=== PATIENT | female | born 1985 | race Caucasian/White ===

== ENCOUNTER → 2019-11-14 09:52 | Outpatient (CLI) | payer OTHER, MEDICAID, SELFPAY ==
[2019-11-14 10:37] LABS: Hematocrit 38.4 % (36-46); Hemoglobin 13.2 g/dL (12.0-16.0); Mean Corpuscular HGB Conc 34.4 % (30-36); Mean Corpuscular Hemoglobin 30.6 PG (26-34); Mean Corpuscular Volume 89.1 fL (80-100); Platelet Count 321 X10^3/uL (150-400); Red Blood Cell Count 4.31 X10^6/uL (4.0-5.2); Red Cell Distribution Width 13.5 % (11.6-14.8)
[2019-11-14 11:40] LABS: Alanine Aminotransferase 19 IU/L (<35); Albumin 4.9 g/dL (3.5-5.0); Albumin Globulin Ratio 1.8 (1.0-2.8); Alkaline Phosphatase 66 U/L (38-126); Aspartate Aminotransferase 23 IU/L (14-36); Bilirubin Total 0.7 mg/dL (0.2-1.3); Blood Urea Nitrogen 8 mg/dL (7-17); Carbon Dioxide 26 mmol/L (22-32); Chloride 102 mmol/L (98-107); Cholesterol 153 mg/dL (140-199); Estimated Glomerular Filt Rate > 60.0 mL/min (>60); Globulin 2.8 g/dL (1.7-4.1); Glucose 81 mg/dL (70-100); HDL Cholesterol 63 mg/dL (40-60); HEMOLYSIS < 15 (0-50); LDL Cholesterol Calculated 79 mg/dL (<100); Potassium 4.5 mmol/L (3.4-5.1); Sodium 139 mmol/L (137-145); Total Protein 7.7 g/dL (6.3-8.2); Triglycerides 56 mg/dL (35-150)
== END ==
PROVIDERS: PCP Nurse Practitioner Family; Visit Provider Nurse Practitioner Family
DX: Z00.00 Encounter for general adult medical examination without abnormal findings (principal); Z13.6 Encounter for screening for cardiovascular disorders
CPT/HCPCS: 36415; 80053; 80061; 85027

== ENCOUNTER → 2019-11-18 10:51 | Outpatient (CLI) | payer OTHER, MEDICAID, SELFPAY ==
--- NOTE | 2019-11-18 10:56 | DI.US.S_ITS ---
PROCEDURE: US OB <= 14 WEEKS FETUS INDICATIONS: DATING AND VIABILITY OUTSIDE/PRIOR DATING DATA: Last menstrual period (LMP): Unknown. LMP-based estimated date of delivery (SUMMER): Unknown. First dating scan (date and location): 11/18/19. Estimated date of delivery (SUMMER) from first dating scan: 06/21/20. TECHNIQUE: Real-time scanning was performed of the fetus and maternal pelvic organs, with image documentation. COMPARISON: None. FINDINGS: Embryo: There is single intrauterine gestation with fetus a yolk sac seen. heart rate is 175 beats per minute. Kevin-rump length measures 2.4 cm. Estimated gestational age is 9 weeks one day. Cervix is closed, cervical canal measures 3.2 cm in length. Measurement variability in dating: +/- 4 weeks by LMP, +/- 7 days by mean sac diameter (use before 6 weeks gestation if crown-rump length not able to be measured), +/- 5 days by crown-rump length (up to 8 weeks 6 days gestation), +/- 7 days by crown-rump length (up to 13 weeks 6 days gestation). Maternal organs: Right ovary is within normal limits. Left ovarian corpus luteal cyst is seen and measures 1.9 x 1.5 x 1.6 cm in size. Limited images through the kidneys demonstrate no hydronephrosis. IMPRESSION: 1. Single intrauterine with fetus and yolk sac seen. Estimated gestational age is 9 weeks one day. heart rate is 175 beats per minute. Dictated by: Reese Enamorado M.D. on 11/18/2019 at 14:24 Approved by: Reese Enamorado M.D. on 11/18/2019 at 14:26
== END ==
PROVIDERS: PCP Nurse Practitioner Family; Visit Provider Family Medicine
DX: Z34.81 Encounter for supervision of other normal pregnancy, first trimester (principal); Z3A.09 9 weeks gestation of pregnancy
CPT/HCPCS: 76801

== ENCOUNTER → 2019-12-05 14:37 | Outpatient (CLI) | payer OTHER, MEDICAID, SELFPAY ==
[2019-12-05 16:18] LABS: Add Manual Diff / Slide Review NO; Basophils Absolute Auto 100 /uL (0-100); Basophils Percent Auto 0.6 % (0-2); Eosinophils Absolute Auto 100 /uL (0-450); Eosinophils Percent Auto 1.1 % (2-4); Hematocrit 39.9 % (36-46); Hemoglobin 13.7 g/dL (12.0-16.0); Lymphocytes Absolute Auto 1600 /uL (1100-4500); Lymphocytes Percent Auto 14.5 % (25-40); Mean Corpuscular HGB Conc 34.2 % (30-36); Mean Corpuscular Hemoglobin 30.7 PG (26-34); Mean Corpuscular Volume 89.8 fL (80-100); Monocytes Absolute Auto 600 /uL (0-900); Monocytes Percent Auto 5.8 % (3-14); Neutrophils Absolute Auto 8800 /uL (1500-7000); Platelet Count 349 X10^3/uL (150-400); Red Blood Cell Count 4.44 X10^6/uL (4.0-5.2); Red Cell Distribution Width 13.4 % (11.6-14.8); White Blood Cell Count 11.2 X10^3/uL (4.5-11.0)
[2019-12-05 16:24] LABS: Appearance Urine UA CLEAR; Bilirubin Urine UA NEGATIVE (NEGATIVE); Color Urine UA YELLOW; Glucose Urine UA NEGATIVE (Negative); Ketones Urine UA NEGATIVE (NEGATIVE); Leukocyte Esterase Urine UA NEGATIVE (NEGATIVE); Nitrite Urine UA NEGATIVE (Negative); Occult Blood Urine UA TRACE-LYSED (Negative); Protein Urine UA NEGATIVE (Negative); Specific Gravity Urine UA 1.025 (1.000-1.035); Urobilinogen Urine UA 0.2 E.U./dL (0.2)
[2019-12-05 17:33] LABS: Hepatitis B Surface Antigen NEGATIVE s/c (NEGATIVE); Rubella Antibody IgG 23.3 IU/mL (>15)
[2019-12-05 17:56] LABS: HIV 1 & 2 Ab/Ag 4th Gen Combo NEGATIVE (NEGATIVE); Hep C Virus Ab w/Reflex Quant NEGATIVE s/c (NEGATIVE)
[2019-12-07 20:08] LABS: RPR Screen Nonreactive (Nonreactive)
== END ==
PROVIDERS: Family Provider Nurse Practitioner Family; PCP Nurse Practitioner Family; Visit Provider Family Medicine
DX: Z34.81 Encounter for supervision of other normal pregnancy, first trimester (principal)
CPT/HCPCS: 36415; 80055; 81003; 86787; 86803; 86850; 86900; 86901; 87086; 87389

== ENCOUNTER → 2020-01-02 10:01 | Outpatient (CLI) | payer OTHER, MEDICAID, SELFPAY ==
[2020-01-02 10:17] LABS: Bacteria Urine None Seen; RBC Urine None Seen (0-5/HPF); WBC Urine None Seen (0-5/HPF)
[2020-01-02 11:06] LABS: Appearance Urine UA CLEAR; Bilirubin Urine UA NEGATIVE (NEGATIVE); Color Urine UA YELLOW; Glucose Urine UA NEGATIVE (Negative); Ketones Urine UA NEGATIVE (NEGATIVE); Leukocyte Esterase Urine UA NEGATIVE (NEGATIVE); Nitrite Urine UA NEGATIVE (Negative); Occult Blood Urine UA NEGATIVE (Negative); Protein Urine UA NEGATIVE (Negative); Urobilinogen Urine UA 0.2 E.U./dL (0.2)
[2020-01-02 11:39] LABS: Amorphous Sediment Urine 3+; Culture Indicated Urine Cult Not Indicated; Mucus Urine 1+ (Negative); Squamous Epithelial Cell Urine 0-1 /HPF (0-5/HPF)
== END ==
PROVIDERS: Family Medicine; Family Provider Nurse Practitioner Family; PCP Nurse Practitioner Family; Referring Provider Nurse Practitioner Family; Visit Provider Nurse Practitioner Family
DX: N89.8 Other specified noninflammatory disorders of vagina (principal)
CPT/HCPCS: 81001

== ENCOUNTER → 2020-01-17 08:50 | Outpatient (CLI) | payer OTHER, MEDICAID, SELFPAY ==
--- NOTE | 2020-01-17 08:51 | DI.US.S_ITS ---
PROCEDURE: US OB >= 14 WEEKS FETUS INDICATIONS: ANATOMY SCAN OUTSIDE/PRIOR DATING DATA: Last menstrual period (LMP): Unknown. LMP-based estimated date of delivery (SUMMER): Unknown. First dating scan (date and location): 11/18/19. Estimated date of delivery (SUMMER) from first dating scan: 06/21/20.. TECHNIQUE: Real-time scanning was performed of the fetus, with image documentation and biometric measurements. Endovaginal scanning: No COMPARISON: None. FINDINGS: General: A single living intrauterine gestation is present. Presentation: Cephalic. Placenta: Placental position is posterior, without previa. Amniotic fluid index: 9.7 cm, normal range is 5-24 cm. heart rate: 160 beats per minute. Maternal cervical canal: 3.5 cm long. Normal lower limit is 2.5 cm. biometrics: Biparietal diameter: 17 weeks 4 days Head circumference: 17 weeks 3 days Abdominal circumference: 17 weeks 4 days Femur length: 17 weeks 4 days Estimated gestational age from initial scan: 17 weeks 5 days Composite gestational age from present scan: 17 weeks 4 days Estimated weight and percentile: 202 g; 38 percentile Measurement variability for biometric dating: +/- 7 days from 14 weeks to 15 weeks 6 days gestation, +/- 10 days from 16 weeks to 21 weeks 6 days gestation, +/- 2 weeks from 22 weeks to 27 weeks 6 days gestation, +/- 3 weeks for 28 weeks gestation or later. weight reference: 4500 g or EFW >90/95% is considered macrosomia or large for gestational age. EFW <10% is small for gestational age. EFW 5% or less is considered intra-uterine growth restriction. Anatomic survey: Neuro: Ventricles are non-dilated at less than 10 mm. Cisterna magna is normal at 3-11 mm. Cerebellum is normal in size and morphology. Nuchal skin fold: Normal at less than 6 mm between 14-21 weeks gestational age. Face: Nose and lips, facial profile are normal. Spine: No evidence for spina bifida. Heart: 4-chambered heart is present, with normal ventricular outflow tracts. Diaphragm: Diaphragm is intact. Stomach: Left-sided stomach is present. Kidneys: No hydronephrosis. Normal is less than 5 mm in 2nd trimester, less than 7 mm in 3rd trimester. Cord: 3-vessel cord has orthotopic insertion. Bladder: Normal in size. Extremities: All 4 extremities identified. IMPRESSION: 1. Normal interval growth. 2. Normal anatomy. Dictated by: Nathaniel HONG Interpreted: Cal Locke MD on 01/17/2020 at 10:17 Approved by: Cal Locke M.D. on 01/17/2020 at 15:18
== END ==
PROVIDERS: Family Provider Nurse Practitioner Family; PCP Nurse Practitioner Family; Referring Provider Family Medicine; Visit Provider Family Medicine
DX: Z34.82 Encounter for supervision of other normal pregnancy, second trimester (principal); Z3A.17 17 weeks gestation of pregnancy
CPT/HCPCS: 76811

== ENCOUNTER → 2020-03-26 09:12 | Outpatient (CLI) | payer OTHER, MEDICAID, SELFPAY ==
[2020-03-26 10:06] LABS: Add Manual Diff / Slide Review NO; Basophils Absolute Auto 0 /uL (0-100); Basophils Percent Auto 0.5 % (0-2); Eosinophils Absolute Auto 100 /uL (0-450); Eosinophils Percent Auto 1.4 % (2-4); Hematocrit 35.9 % (36-46); Hemoglobin 12.5 g/dL (12.0-16.0); Lymphocytes Absolute Auto 1400 /uL (1100-4500); Lymphocytes Percent Auto 15.4 % (25-40); Mean Corpuscular HGB Conc 34.8 % (30-36); Mean Corpuscular Hemoglobin 30.8 PG (26-34); Mean Corpuscular Volume 88.3 fL (80-100); Monocytes Absolute Auto 600 /uL (0-900); Monocytes Percent Auto 6.9 % (3-14); Neutrophils Absolute Auto 6600 /uL (1500-7000); Neutrophils Percent Auto 75.8 % (50-75); Platelet Count 340 X10^3/uL (150-400); Red Blood Cell Count 4.06 X10^6/uL (4.0-5.2); Red Cell Distribution Width 14.4 % (11.6-14.8); White Blood Cell Count 8.8 X10^3/uL (4.5-11.0)
[2020-03-26 11:31] LABS: GTT (PREG) 1 Hour PP 50gm Dose 147 mg/dL (76-139)
== END ==
PROVIDERS: Family Provider Nurse Practitioner Family; PCP Nurse Practitioner Family; Referring Provider Family Medicine; Visit Provider Family Medicine
DX: Z34.81 Encounter for supervision of other normal pregnancy, first trimester (principal)
CPT/HCPCS: 36415; 82950; 85025; 86850

== ENCOUNTER → 2020-04-09 14:02 | Outpatient (ROUT) | payer OTHER, MEDICAID, SELFPAY ==
[2020-04-09 15:35] LABS: Urine N gonorrhoeae NOT DETECTED
[2020-04-09 15:45] LABS: Urine Chlamydia NOT DETECTED
== END ==
PROVIDERS: Family Provider Nurse Practitioner Family; PCP Nurse Practitioner Family; Visit Provider Family Medicine
DX: Z34.80 Encounter for supervision of other normal pregnancy, unspecified trimester (principal); Z3A.30 30 weeks gestation of pregnancy
CPT/HCPCS: 87491; 87591

== ENCOUNTER → 2020-05-21 09:38 | Outpatient (CLI) | payer OTHER, MEDICAID, SELFPAY ==
[2020-05-22 14:49] LABS: Strep Grp B PCR NEG for Grp B Strep
== END ==
PROVIDERS: Family Provider Nurse Practitioner Family; PCP Nurse Practitioner Family; Visit Provider Family Medicine
DX: Z34.90 Encounter for supervision of normal pregnancy, unspecified, unspecified trimester (principal); Z3A.36 36 weeks gestation of pregnancy
CPT/HCPCS: 87653

== ENCOUNTER 2020-06-12 04:48 | Inpatient (IN) | payer OTHER, MEDICAID, SELFPAY ==
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
--- NOTE | 2020-06-12 05:04 | PM.OBPRVD ---
Labor & Delivery Delivery date: 06/12/20 Intrapartal events: Precipitous Labor < 3 hours Cervical ripening method: none Induction method: none Delivery monitor: external FHT Route of delivery: Episiotomy description: None L&D Laceration Description: None Estimated blood loss (mL): 100 Anesthesia type: None Complications: None Narrative: PROCEDURE: at 39w1d presented in active labor and was admitted to Labor and Delivery. The patient progressed through the 1st stage over 1.5 hours, arriving with cervix fully dilated. Pain was controlled with natural methods. The patient progressed through the 2nd stage over 30 minutes and delivered a viable male with APGARs 8/9 at 4:51 via without complications. Nuchal cord x2 was reduced at the perineum. The baby cried spontaneously immediately after delivery. The perineum and vagina were inspected with no lacerations. PREPROCEDURE DIAGNOSIS: Intrauterine at 39w1d GBS negative RH nevative POSTPROCEDURE DIAGNOSIS: Intrauterine at 39w1d, delivered Same as preprocedure ROM APPEARANCE: Clear BABY A WEIGHT: 6lb13.9oz BABY A NUCHAL CORD: x2, reduced at perineum BABY A CORD GASES OBTAINED: No PLACENTA DELIVERY TIME: 4:56 PLACENTA APPEARANCE: Intact Baby 1: Infant gender: Male Presentation: vertex position: Right Occiput Anterior Placenta delivery description: Spontaneous cord vessel description: 3 Vessels score (1 min): 8 score (5 min): 9 Plan for aftercare: Normal care
[2020-06-12 05:41] LABS: Add Manual Diff / Slide Review NO; Basophils Absolute Auto 200 /uL (0-100); Basophils Percent Auto 1.2 % (0-2); Eosinophils Absolute Auto 100 /uL (0-450); Eosinophils Percent Auto 0.3 % (2-4); Hematocrit 36.8 % (36-46); Lymphocytes Absolute Auto 2000 /uL (1100-4500); Lymphocytes Percent Auto 11.9 % (25-40); Mean Corpuscular HGB Conc 32.4 % (30-36); Mean Corpuscular Hemoglobin 26.4 PG (26-34); Mean Corpuscular Volume 81.5 fL (80-100); Monocytes Absolute Auto 1100 /uL (0-900); Monocytes Percent Auto 6.9 % (3-14); Neutrophils Absolute Auto 13100 /uL (1500-7000); Neutrophils Percent Auto 79.7 % (50-75); Platelet Count 356 X10^3/uL (150-400); Red Blood Cell Count 4.52 X10^6/uL (4.0-5.2); Red Cell Distribution Width 14.6 % (11.6-14.8); White Blood Cell Count 16.5 X10^3/uL (4.5-11.0)
[2020-06-12] MEDS: IBUPROFEN 600 MG TABLET PO ×3 (06:48→20:08)
[2020-06-12 11:48] VITALS: TEMP 37.8
[2020-06-12] MEDS: ACETAMINOPHEN 325 MG TABLET 650 MG PO ×2 (11:48→18:13)
[2020-06-12] MEDS: KETOROLAC 60 MG/2 ML VIAL IM (14:34)
[2020-06-12] MEDS: RHO(D) IMMUNE GLOBULIN 1,500 UNIT SYRINGE 1500 UNIT IM (18:14)
[2020-06-13] MEDS: PRENATAL VIT,CALC/IRON/FOLIC 1 TABLET 1 TAB PO (08:24)
[2020-06-13] MEDS: DOCUSATE 100 MG CAPSULE PO (08:24)
--- NOTE | 2020-06-13 10:04 | PM.OBDS.1 ---
Discharge Providers Provider Date of admission: 06/12/20 04:48 Discharge Date: 06/13/20 Primary care physician: CHAO Lewis Consults: 06/13/20 05:03 Consult to Senior Industrial Engineer Routine Comment: Discharge provider: Juany Marcano MD Summary Hospital Course Date Patient Seen: 06/13/20 Time Patient Seen: 07:45 Procedures: Spontaneous vaginal delivery Hospital Course: The pt presented in active labor and had a precipitous vaginal delivery of a viable baby boy on 06/12. There were no complications with delivery. There were no lacerations. , there were no complications. At the time of discharge, the patient was voiding, ambulating, passing flatus without difficulty. Her pain was well controlled. Her lochia was decreasing appropriately. She was breast-feeding with good latch, and had visited with . She will follow-up in clinic in 6 weeks for her check. Peripartum Data Delivery Method: Natural Vaginal Laceration Description: None Episiotomy description: None Procedures: Spontaneous vaginal delivery complications: none [place] 1: Gender: Male Disposition of : home Status at Discharge Cognitive/behavioral status at discharge: oriented Functional status at discharge: independent ambulation Overall status at discharge: patient is progressing back to baseline Time Spent with Patient Time attestation: Total time spent providing and/or coordinating discharge services: Objective Labs Result Diagrams: 06/12/20 04:30 Discharge Plan Discharge Plan Patient Disposition: Home Discharge orders & Medications Prescriptions: New acetaminophen 325 mg Tablet 650 mg PO Q6HR PRN (Reason: Pain, Mild (1-3)) Qty: 30 RF: 0 Dermoplast (with menthol) 20-0.5 % Aerosol 1 spray topical Q1HR PRN (Reason: perineal pain) Qty: 56 RF: 0 docusate sodium [DOK] 100 mg Capsule 100 mg PO DAILY Qty: 30 RF: 0 ibuprofen 600 mg Tablet 600 mg PO Q6HR PRN (Reason: Pain, Mild (1-3)) Qty: 30 RF: 0 Fjm-R-Zhnjqu Cream 1 applic topical PRN PRN (Reason: Tenderness) Qty: 28 RF: 0 Continued prenat.vits,chantale,stb-xdge-bbsbx Tablet 1 tab PO DAILY RF: 0 Follow up/Referrals: Nery Wilson ARNP [Primary Care Provider] - Juany Marcano MD [Physician] - 6 Weeks Diet/Activity/Treatments Diet: Diet as Tolerated and Regular Skin/Wound/Dressing Care Report to your healthcare provider any signs of infection, such as:: chills, fever, increased pain and unusual drainage Visit Report/Discharge Packet Instructions: DI for Labor and Delivery, Vaginal Visit Report Forms: Patient Portal/API, Stroke Signs & Symptoms Discharge Data Primary Care Provider: Nery Wilson
[2020-06-13 10:31] VITALS: BP 116/70; PULSE 71; RESP 16; TEMP 37.3
== END 2020-06-13 14:30 | disposition home or self-care (01) | DRG 560 ==
PROVIDERS: Admitting Provider Family Medicine; Family Provider Nurse Practitioner Family; PCP Nurse Practitioner Family; Referring Provider Family Medicine; Visit Provider Family Medicine
DX: O62.3 Precipitate labor (principal); Z3A.39 39 weeks gestation of pregnancy; Z37.0 Single live birth; O69.81X0 Labor and delivery complicated by cord around neck, without compression, not applicable or unspecified
CPT/HCPCS: 59050; 59409; 85025; 85461; 86850; 86870; 86900; 86901; G0379; J1885; J2790

== ENCOUNTER → 2021-02-21 16:03 | Outpatient (CLI) | payer OTHER, MEDICAID, SELFPAY ==
[2021-02-21 18:08] LABS: Urine N gonorrhoeae NOT DETECTED
[2021-02-21 18:29] LABS: Urine Chlamydia DETECTED
[2021-02-22 06:59] LABS: RPR Screen Non Reactive (Non Reactive)
[2021-02-22 07:09] LABS: HSV 2 IGG AB < 0.91 index (0.00-0.90); HSV1IGG < 0.91 index (0.00-0.90)
[2021-02-22 15:42] LABS: Hepatitis B Surface Antigen NEGATIVE s/c (NEGATIVE)
[2021-02-22 15:48] LABS: HIV 1 & 2 Ab/Ag 4th Gen Combo NEGATIVE (NEGATIVE)
== END ==
PROVIDERS: Family Provider Nurse Practitioner Family; PCP Nurse Practitioner Family; Referring Provider Nurse Practitioner Family; Visit Provider Nurse Practitioner Family
DX: Z20.2 Contact with and (suspected) exposure to infections with a predominantly sexual mode of transmission (principal)
CPT/HCPCS: 36415; 86592; 86695; 86696; 87340; 87389; 87491; 87591

== ENCOUNTER → 2021-03-04 11:04 | Outpatient (CLI) | payer OTHER, MEDICAID, SELFPAY | PROVIDERS: Family Provider Nurse Practitioner Family; PCP Nurse Practitioner Family; Referring Provider Nurse Practitioner Family; Visit Provider Nurse Practitioner Family | DX: A64 Unspecified sexually transmitted disease (principal) | CPT/HCPCS: 87661 ==

== ENCOUNTER → 2022-10-07 16:40 | Outpatient (CLI) | payer OTHER, MEDICAID, SELFPAY ==
--- NOTE | 2022-10-07 16:42 | DI.US.S_ITS ---
PROCEDURE: US OB <= 14 WEEKS FETUS INDICATIONS: dating of OUTSIDE/PRIOR DATING DATA: Last menstrual period (LMP): Unknown. LMP-based estimated date of delivery (SUMMER): Unknown. First dating scan (date and location): 10/07/2022. Estimated date of delivery (SUMMER) from first dating scan: 04/16/2023. The calculations are made using the ultrasound SUMMER of 04/16/2023. TECHNIQUE: Real-time scanning was performed of the fetus and maternal pelvic organs, with image documentation. Endovaginal scanning was also performed to better visualize the fetus and maternal ovaries. COMPARISON: [facility], , OB <= 14 WEEKS FETUS, 11/18/2019, 11:14. FINDINGS: Embryo: Chualar-rump length measuring 6.3 cm, 12 weeks 5 days Heart rate: 153 bpm A yolk sac is seen. No perigestational hemorrhage. Maternal organs: Ovaries are not well seen. IMPRESSION: 1. Busby living intrauterine at 12 weeks 5 days based on today's crown rump length. 2. No perigestational hemorrhage. We strive to produce accurate, complete, and clear reports of imaging services. To assist us in improving patient care, this report was composed using standard report templates and voice recognition software. Therefore, it may contain abnormal punctuation, insertions and/or omissions. Occasional wrong-word or sound-alike substitutions may occur. Though we review the report and make efforts to correct it, we do recommend that the report be read carefully in proper context to recognize any text inaccuracies. Dictated by: Samm Alvarez M.D. on 10/08/2022 at 8:53 Approved by: Samm Alvarez M.D. on 10/08/2022 at 8:55
== END ==
PROVIDERS: Family Provider Nurse Practitioner Family; PCP Family Medicine; Referring Provider Family Medicine; Visit Provider Family Medicine
DX: Z36.87 Encounter for antenatal screening for uncertain dates (principal); Z3A.12 12 weeks gestation of pregnancy
CPT/HCPCS: 76801

== ENCOUNTER → 2022-10-29 13:14 | Outpatient (CLI) | payer OTHER, MEDICAID, SELFPAY ==
[2022-10-29 13:48] LABS: Add Manual Diff / Slide Review NO; Basophils Absolute Auto 100 /uL (0-100); Basophils Percent Auto 0.8 % (0-2); Eosinophils Absolute Auto 100 /uL (0-450); Eosinophils Percent Auto 0.7 % (2-4); Hematocrit 38.1 % (36-46); Hemoglobin 12.7 g/dL (12.0-16.0); Lymphocytes Absolute Auto 1500 /uL (1100-4500); Mean Corpuscular HGB Conc 33.4 % (30-36); Mean Corpuscular Hemoglobin 29.3 PG (26-34); Mean Corpuscular Volume 87.9 fL (80-100); Monocytes Absolute Auto 600 /uL (0-900); Monocytes Percent Auto 5.2 % (3-14); Neutrophils Absolute Auto 9300 /uL (1500-7000); Neutrophils Percent Auto 80.3 % (50-75); Platelet Count 335 X10^3/uL (150-400); Red Blood Cell Count 4.34 X10^6/uL (4.0-5.2); Red Cell Distribution Width 14.7 % (11.6-14.8); White Blood Cell Count 11.6 X10^3/uL (4.5-11.0)
[2022-10-29 14:00] LABS: Appearance Urine UA SL CLOUDY; Bilirubin Urine UA NEGATIVE (NEGATIVE); Color Urine UA YELLOW; Glucose Urine UA NEGATIVE (Negative); Ketones Urine UA NEGATIVE (NEGATIVE); Leukocyte Esterase Urine UA NEGATIVE (NEGATIVE); Nitrite Urine UA NEGATIVE (Negative); Occult Blood Urine UA TRACE-INTACT (Negative); Protein Urine UA TRACE (Negative); Specific Gravity Urine UA >=1.030 (1.000-1.035); Urobilinogen Urine UA 0.2 E.U./dL (0.2)
[2022-10-29 15:31] LABS: Urine N gonorrhoeae NOT DETECTED
[2022-10-29 15:32] LABS: Urine Chlamydia NOT DETECTED
[2022-10-30 06:07] LABS: RPR Screen Non Reactive (Non Reactive)
[2022-10-30 08:09] LABS: Varicella IgG Antibody 1092 index (Immune >165)
[2022-10-30 17:19] LABS: Hepatitis B Surface Antigen NEGATIVE s/c (NEGATIVE); Rubella Antibody IgG 33.3 IU/mL (>15)
[2022-10-30 17:36] LABS: HIV 1 & 2 Ab/Ag 4th Gen Combo NEGATIVE (NEGATIVE); Hep C Virus Ab w/Reflex Quant NEGATIVE s/c (NEGATIVE)
== END ==
PROVIDERS: Family Provider Nurse Practitioner Family; PCP Family Medicine; Referring Provider Family Medicine; Visit Provider Family Medicine
DX: O09.522 Supervision of elderly multigravida, second trimester (principal); Z3A.00 Weeks of gestation of pregnancy not specified
CPT/HCPCS: 36415; 80055; 81003; 86787; 86803; 86850; 86900; 86901; 87389; 87491; 87591

== ENCOUNTER → 2022-11-27 08:55 | Outpatient (CLI) | payer OTHER, MEDICAID, SELFPAY ==
--- NOTE | 2022-11-27 08:56 | DI.US.S_ITS ---
PROCEDURE: US OB >= 14 WEEKS FETUS INDICATIONS: ANATOMY SCREEN OUTSIDE/PRIOR DATING DATA: Last menstrual period (LMP): Unknown LMP-based estimated date of delivery (SUMMER): Unknown. First dating scan (date and location): 10/07/2022. Estimated date of delivery (SUMMER) from first dating scan: 04/16/2023. The calculations are made using the ultrasound SUMMER of 04/16/2023. TECHNIQUE: Real-time scanning was performed of the fetus, with image documentation and biometric measurements. COMPARISON: [facility], OB >= 14 WEEKS FETUS, 01/17/2020, 9:09. [facility], OB <= 14 WEEKS FETUS, 10/07/2022, 16:59. FINDINGS: General: A single living intrauterine gestation is present. Presentation: Vertex. Placenta: Placental position is posterior , without previa. Amniotic fluid index: 9.7 cm, normal range is 5-24 cm. Single deepest vertical pocket is 2.5 cm. heart rate: 150 beats per minute. Maternal cervical canal: 4.1 cm long. Normal lower limit is 2.5 cm. biometrics: Biparietal diameter: 4.5 cm 19 weeks 4 days Head circumference: 16.2 cm 19 weeks 0 days Abdominal circumference: 13.7 cm 19 weeks 1 day Femur length: 2.7 cm 18 weeks 3 days Composite gestational age from original scan: 20 weeks 0 days Composite gestational age from present scan: 19 weeks 0 days Estimated weight and percentile: 262 g 5th percentile Anatomic survey: Neuro: Ventricles are non-dilated at less than 10 mm. Cisterna magna is normal at 3-11 mm. Cerebellum is normal in size and morphology. Nuchal skin fold: Normal at less than 6 mm between 14-21 weeks gestational age. Face: Nose and lips, facial profile are not well seen. Spine: No evidence for spina bifida. Heart: 4-chambered heart is present, with normal ventricular outflow tracts. Diaphragm: Diaphragm is intact. Stomach: Left-sided stomach is present. Kidneys: No hydronephrosis. Normal is less than 5 mm in 2nd trimester, less than 7 mm in 3rd trimester. Cord: 3-vessel cord has orthotopic insertion. Bladder: Normal in size. Extremities: All 4 extremities identified. IMPRESSION: Single live intrauterine with ultrasound gestational age 2 day of 19 weeks 0 days. Nose/lips and facial profile are suboptimally visualized and follow-up imaging is recommended. It is noted that weight is at the 5th percentile. Recommend continued interval follow-up for evaluation of potential intrauterine growth restriction. We strive to produce accurate, complete, and clear reports of imaging services. To assist us in improving patient care, this report was composed using standard report templates and voice recognition software. Therefore, it may contain abnormal punctuation, insertions and/or omissions. Occasional wrong-word or sound-alike substitutions may occur. Though we review the report and make efforts to correct it, we do recommend that the report be read carefully in proper context to recognize any text inaccuracies. Dictated by: Herminia Michelle M.D. on 11/27/2022 at 14:26 Approved by: Herminia Michelle M.D. on 11/27/2022 at 14:29
== END ==
PROVIDERS: Family Provider Nurse Practitioner Family; PCP Family Medicine; Referring Provider Family Medicine; Visit Provider Family Medicine
DX: Z34.92 Encounter for supervision of normal pregnancy, unspecified, second trimester (principal); Z3A.19 19 weeks gestation of pregnancy
CPT/HCPCS: 76811

== ENCOUNTER → 2022-12-25 08:34 | Outpatient (CLI) | payer OTHER, MEDICAID, SELFPAY ==
--- NOTE | 2022-12-25 08:35 | DI.US.S_ITS ---
PROCEDURE: US OB FOLLOW UP INDICATIONS: FETUS IS MEASURING SMALL FOR GESTATION OUTSIDE/PRIOR DATING DATA: Last menstrual period (LMP): Unknown. LMP-based estimated date of delivery (SUMMER): Unknown. First dating scan (date and location): 10/07/2022. Estimated date of delivery (SUMMER) from first dating scan: 04/16/2023. The calculations are made using the ultrasound SUMMER of 04/16/2023. TECHNIQUE: Real-time scanning was performed of the fetus, with image documentation and biometric measurements. Endovaginal scanning: Not performed COMPARISON: None. FINDINGS: General: A single living intrauterine gestation is present. Presentation: Vertex. Placenta: Placental position is posterior, without previa. Amniotic fluid index: 17.8 cm, normal range is 5-24 cm. Single deepest vertical pocket is 5.4 cm. heart rate: 157 beats per minute. Maternal cervical canal: 4.0 cm long. Normal lower limit is 2.5 cm. biometrics: Biparietal diameter: 5.6 cm, 23 weeks 0 days Head circumference: 20.8 cm, 23 weeks 0 days Abdominal circumference: 18.9 cm, 23 weeks 5 days Femur length: 4.0 cm, 23 weeks 0 days Clinically estimated gestational age: 24 weeks 0 days Composite gestational age from present scan: 23 weeks 1 day Estimated weight and percentile: 582 g, 15 percentile Other: Not applicable. IMPRESSION: 1. Living 2nd trimester intrauterine with no sonographic evidence of complications. 2. Current ultrasound age is 6 days less than clinical age based on initial 1st trimester obstetrical ultrasound. We strive to produce accurate, complete, and clear reports of imaging services. To assist us in improving patient care, this report was composed using standard report templates and voice recognition software. Therefore, it may contain abnormal punctuation, insertions and/or omissions. Occasional wrong-word or sound-alike substitutions may occur. Though we review the report and make efforts to correct it, we do recommend that the report be read carefully in proper context to recognize any text inaccuracies. Dictated by: Michael Mcgrath M.D. on 12/25/2022 at 11:09 Approved by: Michael Mcgrath M.D. on 12/25/2022 at 11:12
== END ==
PROVIDERS: Family Provider Nurse Practitioner Family; PCP Family Medicine; Referring Provider Family Medicine; Visit Provider Family Medicine
DX: Z34.82 Encounter for supervision of other normal pregnancy, second trimester (principal); Z3A.23 23 weeks gestation of pregnancy
CPT/HCPCS: 76816

== ENCOUNTER → 2023-01-21 08:26 | Outpatient (CLI) | payer OTHER, MEDICAID, SELFPAY ==
[2023-01-21 10:07] LABS: Hematocrit 35.2 % (36-46); Hemoglobin 11.9 g/dL (12.0-16.0)
[2023-01-21 10:58] LABS: GTT (PREG) 1 Hour PP 50gm Dose 123 mg/dL (76-139)
== END ==
PROVIDERS: Family Provider Nurse Practitioner Family; PCP Family Medicine; Referring Provider Family Medicine; Visit Provider Family Medicine
DX: Z34.82 Encounter for supervision of other normal pregnancy, second trimester (principal)
CPT/HCPCS: 36415; 82950; 85014; 85018; 86900; 86901

== ENCOUNTER → 2023-01-26 11:13 | Outpatient (CLI) | payer OTHER, MEDICAID, SELFPAY | PROVIDERS: Family Provider Nurse Practitioner Family; PCP Family Medicine; Referring Provider Family Medicine; Visit Provider Family Medicine | DX: Z34.82 Encounter for supervision of other normal pregnancy, second trimester (principal) | CPT/HCPCS: 36415; 86850 ==

== ENCOUNTER → 2023-03-23 11:43 | Outpatient (CLI) | payer OTHER, MEDICAID, SELFPAY ==
[2023-03-24 08:47] LABS: Strep Grp B PCR POS for Grp B Strep
== END ==
PROVIDERS: Family Provider Nurse Practitioner Family; PCP Family Medicine; Visit Provider Family Medicine
DX: Z34.83 Encounter for supervision of other normal pregnancy, third trimester (principal); Z3A.36 36 weeks gestation of pregnancy
CPT/HCPCS: 87653

== ENCOUNTER 2023-04-10 07:35 | Outpatient (CLI) | payer OTHER, MEDICAID, SELFPAY | END 2023-04-10 08:27 | disposition home or self-care (01) | LOC: OB 04-17 06:05 | PROVIDERS: Family Provider Nurse Practitioner Family; PCP Family Medicine; Referring Provider Family Medicine; Visit Provider Family Medicine | DX: O47.1 False labor at or after 37 completed weeks of gestation (principal); Z3A.39 39 weeks gestation of pregnancy | CPT/HCPCS: 59025; G0378; G0379 ==

== ENCOUNTER 2023-04-14 07:30 | Inpatient (IN) | payer OTHER, MEDICAID, SELFPAY ==
--- NOTE | 2023-04-14 | PATH_ITS ---
[facility] Accession Number: [id number] No. of containers..01 Tissue . 01 Material submitted: . fallopian tube - RIGHT AND LEFT FALLOPIAN TUBES . 01 Diagnosis: Right and Left Fallopian Tubes: Complete cross-sections of fallopian tubes x2 with scattered benign paratubal cysts (2 mm - 9 mm); negative for significant atypia. MRV 04/17/2023 1604 Local . 01 Electronically signed: . Cintia Marie MD, Pathologist NPI- [id number] . 01 Gross description: . The specimen received in formalin labeled with the patient's name, , and right and left fallopian tubes, consists of two unoriented violaceous fimbriated fallopian tubes. The first measures 6.7 cm in length and 0.7 cm in diameter. Two serous fluid filled, smooth lined, paratubal cysts are noted measuring 0.2 and 0.9 cm in greatest dimension. The external surface is inked blue. The second fallopian tube measures 6.1 cm in length and up to 1.0 cm in greatest external diameter. A single serous fluid filled paratubal cyst is noted measuring 0.3 cm in greatest dimension. The external surface is inked black. Lumens are identified. Auto Slip Cover Installer sections to include the entire fimbriae, paratubal cysts, and cross-sections of tube are submitted in cassettes A1-A2. ([id number]) / 04/16/2023 1146 Local . 01 Pathologist provided ICD-10: Z30.2 . 01 CPT . 846613 Specimen Comment: A courtesy copy of this report has been sent to [phone] Performed at: 01 [facility] [address] [place] [address], [place] [id number] MD Rafael Beasley MD Phone: [phone]
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
[2023-04-14 08:11] VITALS: BP 104/58
[2023-04-14 08:19] LABS: Add Manual Diff / Slide Review NO; Basophils Absolute Auto 0 /uL (0-100); Basophils Percent Auto 0.6 % (0-2); Eosinophils Absolute Auto 200 /uL (0-450); Eosinophils Percent Auto 2.1 % (2-4); Hematocrit 36.6 % (36-46); Hemoglobin 12.5 g/dL (12.0-16.0); Lymphocytes Absolute Auto 1600 /uL (1100-4500); Mean Corpuscular Hemoglobin 29.7 PG (26-34); Mean Corpuscular Volume 87.5 fL (80-100); Monocytes Absolute Auto 700 /uL (0-900); Monocytes Percent Auto 8.2 % (3-14); Neutrophils Absolute Auto 5900 /uL (1500-7000); Neutrophils Percent Auto 70.1 % (50-75); Platelet Count 294 X10^3/uL (150-400); Red Blood Cell Count 4.19 X10^6/uL (4.0-5.2); Red Cell Distribution Width 14.9 % (11.6-14.8); White Blood Cell Count 8.4 X10^3/uL (4.5-11.0)
[2023-04-14] MEDS: LACTATED RINGERS 1,000 ML 100 ML IV ×2 (08:34→17:09)
[2023-04-14] MEDS: AMPICILLIN 2,000 MG in SODIUM CHLORIDE 0.9% 100 ML 200 MG IV (08:35)
[2023-04-14] MEDS: OXYTOCIN PREMIX 30 UNIT/500 ML PLAST..BAG IV (08:35)
[2023-04-14] MEDS: AMPICILLIN 1,000 MG in SODIUM CHLORIDE 0.9% 100 ML 200 MG IV (12:07)
--- NOTE | 2023-04-14 16:03 | PM.OBPRVD ---
Labor & Delivery Delivery date: 04/14/23 Intrapartal Events: None Cervical ripening method: none Induction method: per pitocin protocol Delivery augmentation: rupture of membranes Delivery monitor: external FHT and external uterine Route of delivery: Episiotomy description: None L&D Laceration Description: None Quantitative Blood Loss: 10 Anesthesia Type: None Complications: None Narrative: PROCEDURE: at 39w5d presented for elective IOL and was admitted to Labor and Delivery. The patient progressed through the 1st stage over 2 hours. ROM occured at 12:24 with clear fluid. Pain was controlled with natural methods. The patient progressed through the 2nd stage over 11 minutes and delivered a viable male with APGARs 8/9 at 15:08 via without complications. Nuchal cord x1 was reduced after delivery. The cord was cut and clamped after it stopped pulsating. The placenta delivered with gentle cord traction, and appeared complete. The perineum and vagina were inspected with no lacerations. Needle and sponge counts were correct.? The vagina was inspected and no items were left in situ. Araceli was doing well with Irene, her and her partner, Misael, at bedside. PREPROCEDURE DIAGNOSIS: Intrauterine at 39w5d GBS positive RH negative Desire permanent sterilization POSTPROCEDURE DIAGNOSIS: Intrauterine at 39w5d, delivered Same as preprocedure Baby 1: gender: Male Presentation: vertex Position: Left Occiput Anterior Placenta delivery description: Spontaneous Cord Vessel Description: Nuchal Cord score (1 min): 8 score (5 min): 9 weight: 7 lb 2.57 oz Plan for aftercare: Routine care and Other ( bilateral salpingectomy)
--- NOTE | 2023-04-14 16:05 | PM.PREOP ---
Pre-operative Note COVID-19 Criteria for continued procedure: Non-surgical alternatives not available or appropriate per current SOC Interval Note History & Physical reviewed/Exam performed by Physician: Yes Changes to H&P: No H&P completed within 30 days and has changed as indicated here:: 04/14/23 Assessment: 37-year-old 4 para 4 who desires permanent Plan: bilateral salpingectomy The risks, benefits, and alternatives to the procedure were explained to the patient. The risks including bleeding, infection, injury to the bowel, bladder, or ureters. She understands these risks and agrees to proceed. A full par Q was held and consent form was signed.
--- NOTE | 2023-04-14 16:42 | SUR.OPER ---
Supine on padded OR bed, head on pillow, arms secured on padded arm boards at <90 degrees abduction, legs uncrossed, safety belt at thigh, tape over blanket over lower legs.
[2023-04-14] MEDS: BUPIVACAINE 0.25% (PF) 30 ML, EPINEPHrine 0.15 MG INJ (16:49)
[2023-04-14 17:06] VITALS: BP 89/55; PULSE 85; RESP 12; TEMP 36; O2SAT 96
[2023-04-14 17:10] VITALS: BP 92/59; PULSE 75; RESP 12; O2SAT 98
[2023-04-14 17:15] VITALS: BP 102/65; PULSE 94; RESP 20; O2SAT 100
[2023-04-14 17:20] VITALS: BP 109/73; PULSE 83; RESP 16; O2SAT 100
--- NOTE | 2023-04-14 17:29 | PM.GYNOP.1 ---
Operative Date/Time/Diagnoses Date of procedure: 04/14/23 Time of procedure: 17:29 Pre-op diagnosis: Multiparity Desires permanent sterilization Post-op diagnosis: same Procedure & Clinicians Procedure: Procedures Operation Date: 04/14/23 16:00 Actual Procedure Side Surgeon p Post Bilateral Tubal Ligation Thania Don MD bilateral salpingectomy Indications: Multiparity Desires permanent sterilization Surgeon: Thania Don Gear Milling Machine Set Up Operator: Juany Marcano Anesthesia Type: General Operative Notes Findings: Normal uterus, tubes, and ovaries Closure Type: primary Specimen(s): left tube and right tube Estimated blood loss (mL): 5 Blood products transfused: none Procedure in detail: After informed consent was obtained, the patient was taken to the operating room where she was placed in the dorsal supine position. After adequate general endotracheal anesthesia was achieved, she was prepped and draped in the usual sterile fashion. Allis clamps were placed 3 cm apart just below the umbilical fold and a 2 cm incision was made between the 2 Allis clamps and carried through to the underlying layer of fascia. Fascia was nicked in the midline and the incision extended with the Guillen scissors. The peritoneum was grasped between 2 hemostats and entered sharply with the Metzenbaum scissors. The left tube was identified and brought up through the incision and grasped with Babcocks. The tube was carried out to the fimbriated end. Using the power seal, the mesosalpinx was cauterized and cut all the way down to the cornua of the uterus. The tube was amputated at the cornua. Hemostasis was achieved. This was repeated on the patient's right tube. Hemostasis was achieved. The surgical sites were examined and were found to be hemostatic. The ovaries were examined and were found to be normal. The fascia was reapproximated using 0 Vicryl in a running fashion. Two simple interrupted sutures were placed in the subcutaneous layer to reapproximate. The skin was closed with 4-0 Monocryl in a subcuticular fashion. Steri-Strips and Allevyn dressing were placed. Sponge, lap, and instrument counts were correct x2. The patient tolerated the procedure well, and was taken to PACU in stable condition. Complications: none Post-operative Condition: stable Disposition: PACU Plan for aftercare: To the center in stable condition.
[2023-04-14] MEDS: ACETAMINOPHEN 325 MG TABLET 650 MG PO (22:17)
[2023-04-14] MEDS: IBUPROFEN 600 MG TABLET PO (22:18)
[2023-04-15] MEDS: IBUPROFEN 600 MG TABLET PO ×2 (06:53→13:48)
[2023-04-15] MEDS: ACETAMINOPHEN 325 MG TABLET 650 MG PO ×2 (06:53→13:48)
[2023-04-15] MEDS: OXYCODONE IR 5 MG TABLET PO ×2 (08:41→13:48)
[2023-04-15] MEDS: PRENATAL VIT,CALC/IRON/FOLIC 1 TABLET 1 TAB PO (08:42)
[2023-04-15] MEDS: DOCUSATE 100 MG CAPSULE PO (08:42)
--- NOTE | 2023-04-15 11:52 | P.DS_ITS ---
Discharge Providers Provider Date of admission: 04/14/23 07:30 Discharge Date: 04/15/23 Primary care physician: Guero Arellano DO Consults: 04/15/23 16:08 Consult to [employer] Turf Worker Routine Comment: Discharge provider: Juany Marcano MD Summary Hospital Course Date Patient Seen: 04/15/23 Diagnoses: Intrauterine at 39w5d GBS positive RH negative Desire permanent sterilization Spontaneous vaginal delivery bilateral salpingectomy Hospital Course: The pt presented for elective IOL. She received pitocin for induction. AROM was performed with clear fluid present. She progressed to complete and had a spontaneous vaginal delivery of a viable baby boy without complications. There were no lacerations. She then underwent bilateral salpingectomy under general anesthesia, without complications. , there were no complications. At the time of discharge she was voiding, ambulating, and passing flatus without difficulty. Her lochia was decreasing appropriately. Her pain was well controlled. She was with good latch. She will f/u in 2 weeks for incision check, and in 6 weeks for check. Peripartum Data Delivery Method: Natural Vaginal Laceration Description: None Episiotomy description: None Procedures: Spontaneous vaginal delivery bilateral salpingectomy complications: none [place] 1: Gender: Male Disposition of : home Discharge Diagnosis (1) (spontaneous vaginal delivery): Status: Acute (2) Status post bilateral salpingectomy: Status: Acute Status at Discharge Cognitive/behavioral status at discharge: oriented Functional status at discharge: independent ambulation Overall status at discharge: patient is progressing back to baseline Time Spent with Patient Time attestation: Total time spent providing and/or coordinating discharge services: Objective Labs 04/14/23 07:50 Exam Vital Signs (past 8 hours): Oxygen Delivery Method Room Air Narrative Exam Narrative: Gen: NAD, sitting comfortably in bed, appears well CV: RRR, no murmurs Resp: clear to auscultation bilaterally Abd: soft, appropriately tender, fundus firm and below the umbilicus, nondistended, dressing c/d/i Ext: no edema Discharge Plan Discharge Plan Patient Disposition: Home Discharge orders & Medications Prescriptions: New acetaminophen 325 mg Tablet 650 mg PO Q6HR PRN (Reason: Pain, Mild (1-3)) Qty: 30 0RF docusate sodium 100 mg Capsule 100 mg PO DAILY Qty: 30 0RF hydrocodone-acetaminophen 5-325 mg Tablet 1 tab PO PACUNOW PRN (Reason: Mild or moderate pain) Qty: 5 0RF ibuprofen 600 mg Tablet 600 mg PO Q6HR PRN (Reason: Pain, Mild (1-3)) Qty: 30 0RF Continued PNV no.686-rlkm-xidlaxfueszu 29-1 mg tablet 1 tab PO DAILY Qty: 90 3RF Follow up/Referrals: Juany Marcano MD [Physician] - (Your six week follow up appointment with Dr. Marcano is scheduled for May 27 @1:30pm.) Guero Arellano DO [Primary Care Provider] - Diet/Activity/Treatments Diet: Diet as Tolerated and Regular Skin/Wound/Dressing Care Report to your healthcare provider any signs of infection, such as:: chills, fever, increased pain and unusual drainage Visit Report/Discharge Packet Instructions: DI for Labor and Delivery, Vaginal Stand Alone Forms: Discharge: Care, Patient Portal/API, Stroke Signs & Symptoms Discharge Data Primary Care Provider: Guero Arellano
== END 2023-04-15 14:30 | disposition home or self-care (01) | DRG 541 ==
PROVIDERS: Obstetrics & Gynecology; Admitting Provider Family Medicine; Family Provider Nurse Practitioner Family; PCP Family Medicine; Referring Provider Family Medicine; Visit Provider Family Medicine
PROC: 0UT70ZZ Resection of Bilateral Fallopian Tubes, Open Approach (ICD-10-PCS; CPT 58605; principal; 2023-04-14 16:00)
DX: O99.824 Streptococcus B carrier state complicating childbirth (principal); Z3A.39 39 weeks gestation of pregnancy; Z37.0 Single live birth; O36.0130 Maternal care for anti-D [Rh] antibodies, third trimester, not applicable or unspecified; Z67.41 Type O blood, Rh negative; Z30.2 Encounter for sterilization
CPT/HCPCS: 58605; 59050; 59409; 85025; 86850; 86870; 86900; 86901; G0379; J0171; J0290; J0330; J1885; J2405; J2590; J2704; J3010

== ENCOUNTER → 2025-05-30 10:43 | Outpatient (CLI) | payer OTHER, SELFPAY ==
[2025-05-30 12:01] LABS: Add Manual Diff / Slide Review NO; Hematocrit 41.0 % (36-46); Hemoglobin 13.9 g/dL (12.0-16.0); Lymphocytes Absolute Auto 1100 /uL (1100-4500); Mean Corpuscular HGB Conc 34.0 % (30-36); Mean Corpuscular Hemoglobin 29.6 PG (26-34); Mean Corpuscular Volume 87.2 fL (80-100); Platelet Count 346 X10^3/uL (150-400)
[2025-05-30 12:16] LABS: Hemoglobin A1C% w Est Avg Glu 5.4 % (4.0-6.0)
[2025-05-30 12:27] LABS: Alanine Aminotransferase 15 IU/L (<35); Albumin 5.4 g/dL (3.5-5.0); Albumin Globulin Ratio 1.6 (1.0-2.8); Alkaline Phosphatase 80 U/L (38-126); Blood Urea Nitrogen 10 mg/dL (7-17); Calcium 9.8 mg/dL (8.4-10.2); Carbon Dioxide 23 mmol/L (22-32); Chloride 104 mmol/L (98-107); Cholesterol 179 mg/dL (140-199); Estimated Glomerular Filt Rate > 60 mL/min (>60); Globulin 3.3 g/dL (1.7-4.1); Glucose 95 mg/dL (70-99); HDL Cholesterol 57 mg/dL (40-60); HEMOLYSIS < 15 (0-50); Potassium 4.4 mmol/L (3.4-5.1); Sodium 141 mmol/L (137-145); Total Protein 8.7 g/dL (6.3-8.2); Triglycerides 67 mg/dL (35-150)
[2025-05-30 12:38] LABS: Vitamin D 25 Hydroxy (D3) 25.4 ng/mL (30.0-100.0)
[2025-05-30 12:52] LABS: Thyroid Stimulating Hormone 0.297 uIU/mL (0.47-4.68)
[2025-05-30 13:12] LABS: Vitamin B12 310 pg/mL (239-931)
[2025-05-31 13:29] LABS: Free T3, Triiodothyronine Free 4.30 pg/mL (2.77-5.27); Free T4, Direct Thyroxine 1.85 ng/dL (0.78-2.19)
== END ==
PROVIDERS: PCP Family Medicine; Referring Provider Family Medicine; Visit Provider Family Medicine
DX: R63.4 Abnormal weight loss (principal)
CPT/HCPCS: 36415; 80053; 80061; 82306; 82607; 83036; 84439; 84443; 84481; 85025

== ENCOUNTER → 2025-06-01 11:58 | Outpatient (CLI) | payer OTHER, SELFPAY ==
--- NOTE | 2025-06-01 12:00 | DI.US.S_ITS ---
PROCEDURE: US PELVIC COMPLETE INDICATIONS: menorrhagia TECHNIQUE: Real-time scanning was performed of the pelvic organs, with image documentation. Additional endovaginal scanning was necessary due to incomplete visualization of the adnexal and endometrial structures by transabdominal scanning. COMPARISON: None. FINDINGS: Uterus: Uterus is anteverted and normal in size at 7.1 x 4.3 x 6.1 cm. The myometrium is homogeneous. The endometrium measures 7 mm combined thickness. There is trace fluid within the endometrial canal, likely physiologic. Ovaries: The right ovary measures 2.3 x 1.5 x 2.0 cm, with a calculated ovarian volume of 7.1 cc. The left ovary measures 3.5 x 1.8 x 2.3 cm, with a calculated ovarian volume of 5.7 cc. The ovaries have a normal sonographic appearance. Less than 12 follicles can be seen in each ovary. No adnexal masses are seen. Other: No pathologic free abdominal or pelvic fluid. IMPRESSION: Unremarkable exam. We strive to produce accurate, complete, and clear reports of imaging services. To assist us in improving patient care, this report was composed using standard report templates and voice recognition software. Therefore, it may contain abnormal punctuation, insertions and/or omissions. Occasional wrong-word or sound-alike substitutions may occur. Though we review the report and make efforts to correct it, we do recommend that the report be read carefully in proper context to recognize any text inaccuracies. Dictated by: Shannan Sommers M.D. on 06/01/2025 at 16:44 Approved by: Shannan Sommers M.D. on 06/01/2025 at 16:45
== END ==
LOC: US 11:59
PROVIDERS: PCP Family Medicine; Referring Provider Family Medicine; Visit Provider Family Medicine
DX: N92.0 Excessive and frequent menstruation with regular cycle (principal)
CPT/HCPCS: 76856